=== PATIENT | male | born 1950 | race Caucasian/White ===

== ENCOUNTER 2020-09-16 04:53 | Emergency (ER) | payer MEDICARE, OTHER ==
[~2020-09-16] VITALS: Ht 177.8 cm; Wt 75.0 kg
--- NOTE | 2020-09-16 05:16 | PHYS DOC ---
Past History Past Medical History: Other Past Surgical History: Other Smoking: Cigarettes Alcohol Use: Rarely Drug Use: None General Adult EDM: Chief Complaint: SHORTNESS OF BREATH HPI: HPI: 70-year-old male with a history of COPD presents with shortness of breath. The patient took a home COVID-19 test 4 days ago and it was positive. She had symptoms for 2 days before that. He went to his primary care physician who placed him on azithromycin, breathing treatments, and prednisone. The patient comes in today because these do not seem to be working. He is feeling more short of breath. He has been hospitalized for COPD in the past. He does not report fever or chills. "It just feels like I cannot get a breath". Review of Systems: Review of Systems: Constitutional: Denies fever or chills Eyes: Denies change in visual acuity HENT: Denies nasal congestion or sore throat Respiratory: shortness of breath Cardiovascular: Denies chest pain or edema GI: Denies abdominal pain, nausea, vomiting, bloody stools or diarrhea : Denies dysuria Musculoskeletal: Denies back pain or joint pain Integument: Denies rash Neurologic: Denies headache, focal weakness or sensory changes Endocrine: Denies polyuria or polydipsia Lymphatic: Denies swollen glands Psychiatric: anxiety Current Medications: Current Meds: Current Medications Medications (Trade) Dose Ordered Sig/Lily Start Time Stop Time Status Last Admin Dose Admin Dexamethasone Sodium Phosphate (Decadron) 10 mg 1X ONCE 09/16/20 05:30 09/16/20 05:31 Allergies: Allergies: Allergies Coded Allergies Type Severity Reaction Last Updated Verified aspirin Allergy Severe Anaphylaxis 09/16/20 Yes Physical Exam: PE: Constitutional: Well developed, well nourished, mild acute distress. [] HENT: Normocephalic, atraumatic, bilateral external ears normal, oropharynx moist, no oral exudates, nose normal. [] Eyes: PERRLA, EOMI, conjunctiva normal, no discharge. [] Neck: Normal range of motion, no tenderness, supple, no stridor. [] Cardiovascular: Heart rate 105, regular rhythm, no murmur [] Lungs & Thorax: Bilateral breath sounds diminished [] Abdomen: Bowel sounds normal, soft, no tenderness, no masses, no pulsatile masses. [] Skin: Warm, dry, no erythema, no rash. [] Back: No tenderness, no CVA tenderness. [] Extremities: No tenderness, no cyanosis, no clubbing, ROM intact, no edema. [] Neurologic: Alert and oriented X 3, normal motor function, normal sensory function, no focal deficits noted. [] Psychologic: Affect normal, judgement normal, mood anxious. [] EKG: EKG: Sinus tachycardia, rate 102, normal axis, no ST elevation or depression. [] Radiology/Procedures: Radiology/Procedures: [] Impressions: EXAMINATION: Chest radiograph. VIEWS: Single view COMPARISON: None INDICATION:70 years, Male, cough and congestion. FINDINGS: Normal cardiomediastinal silhouette. Bibasilar subsegmental atelectasis versus infiltrates. No pleural effusion or pneumothorax. No acute osseous process. IMPRESSION: Bibasilar subsegmental atelectasis versus infiltrates. Clinical correlation is advised. Electronically signed by: Briana Alvarez MD (09/16/2020 5:29 AM) [facility] DICTATED AND SIGNED BY: BRIANA ALVAREZ MD DATE: 09/16/20527 CC: CARLIE MCMAHON DO; JOELLEN HURST MD ~MTH0 0 Heart Score: C/O Chest Pain: N/A Risk Factors: Risk Factors: DM, Current or recent (<one month) smoker, HTN, HLP, family history of CAD, obesity. Risk Scores: Score 0 - 3: 2.5% MACE over next 6 weeks - Discharge Home Score 4 - 6: 20.3% MACE over next 6 weeks - Admit for Clinical Observation Score 7 - 10: 72.7% MACE over next 6 weeks - Early Invasive Strategies Course & Med Decision Making: Course & Med Decision Making Pertinent Labs and Imaging studies reviewed. (See chart for details) The patient is only saturating at 90 to 91% on room air at rest but has an increased respiratory rate. I will treat him with albuterol and Decadron. He is already been taking breathing treatments, prednisone, and azithromycin. It appears as though the patient will need supplemental oxygen so I will admit him to the hospital. He has never been on oxygen at home. I spoke with Dr. Hurst and he has accepted the patient for admission. [] Ubaldo Disclaimer: [place] Disclaimer: This electronic medical record was generated, in whole or in part, using a voice recognition dictation system. Departure Departure: Impression: Primary Impression: COVID-19 Disposition: ADMITTED INPATIENT Admitting Physician: Joellen Hurst Condition: STABLE Referrals: JOELLEN HURST MD (PCP) CARLIE MCMAHON DO Sep 16, 2020 05:16
[2020-09-16] MEDS ORDERED: IPRATRPIUM/ALBUTEROL 0.5/2.5MG 3 ML NEBU. ONE (05:19)
[2020-09-16] MEDS ORDERED: IPRATRPIUM/ALBUTEROL 0.5/2.5MG 3 ML NEBU. NEB ONE ×2 (05:30→09:15)
[2020-09-16] MEDS ORDERED: DEXAMETHASONE SOD PHOS 10 MG/ML VIAL. IVP ONE (05:30)
--- NOTE | 2020-09-16 05:31 | RAD ---
EXAMINATION: Chest radiograph. VIEWS: Single view COMPARISON: None INDICATION:70 years, Male, cough and congestion. FINDINGS: Normal cardiomediastinal silhouette. Bibasilar subsegmental atelectasis versus infiltrates. No pleura l effusion or pneumothorax. No acute osseous process. IMPRESSION: Bibasilar subsegmental atelectasis versus infiltrates. Clinical correlation is advised. Electronically signed by: Rossana Alvarez MD (09/16/2020 5:29 AM) [facility]
[2020-09-16] MEDS ORDERED: ALBUTEROL SULFATE 8GM INHALER. ONE (05:32)
[2020-09-16 05:43] LABS: BASO % 0 % (0-3); EOS % 0 % (0-3); HEMATOCRIT 44.3 % (39.0-53.0); HEMOGLOBIN 14.6 g/dL (13.0-17.5); LYMPH # 0.3 x10^3/uL (1.0-4.8); LYMPH % 6 % (24-48); MEAN CORPUSCULAR HEMOGLOBIN 31 pg (25-35); MEAN CORPUSCULAR HGB CONC 33 g/dL (31-37); MEAN CORPUSCULAR VOLUME 94 fL (79-100); MONO # 0.4 x10^3/uL (0.0-1.1); MONO % 6 % (0-9); NEUT # 5.1 x10^3uL (1.8-7.7); NEUT % 88 % (31-73); PLATELET COUNT 137 x10^3/uL (140-400); RED BLOOD COUNT 4.73 x10^6/uL (4.30-5.70); RED CELL DISTRIBUTION WIDTH 14.2 % (11.5-14.5); WHITE BLOOD COUNT 5.8 x10^3/uL (4.0-11.0)
[2020-09-16 05:53] LABS: CALCIUM 8.5 mg/dL (8.5-10.1); CREATININE 1.1 mg/dL (0.7-1.3); GFR 66.6; POTASSIUM 3.9 mmol/L (3.5-5.1)
[2020-09-16 05:58] LABS: ALBUMIN 3.5 g/dL (3.4-5.0); TOTAL BILIRUBIN 0.3 mg/dL (0.2-1.0); TOTAL PROTEIN 7.1 g/dL (6.4-8.2)
--- NOTE | 2020-09-16 06:07 | EKG ---
[address] [address] Test Date: 2020-09-16 Test Time: 05:17:38 Pat Name: PATRICIA LUA Department: Room: Gender: M Computer Systems Designer: : 1950 Requested By: CARLIE MCMAHON Order Number: [id number] Reading MD: Measurements Intervals Ryan Rate: 102 P: 54 ME: 132 QRS: 39 QRSD: 80 T: 58 QT: 310 QTc: 408 Interpretive Statements SINUS TACHYCARDIA NO SPECIFIC ECG ABNORMALITIES RI6.02 No previous ECG available for comparison
[2020-09-16] MEDS ORDERED: MORPHINE SULFATE 4 MG/ML DISP.SYRIN. IVP PRN (07:15)
[2020-09-16] MEDS ORDERED: ONDANSETRON PF 4 MG/2 ML VIAL. IVP PRN (07:15)
[2020-09-16] MEDS ORDERED: AZITHROMYCIN 250 MG TABLET. PO ONE (09:15)
[2020-09-16] MEDS ORDERED: IPRATROPIUM/ALBUTEROL 20/100mcg/INH INHALER. INH SCH (12:00)
[2020-09-16] MEDS ORDERED: IPRATRPIUM/ALBUTEROL 0.5/2.5MG 3 ML NEBU. NEB SCH (12:00)
[2020-09-16] MEDS ORDERED: ENOXAPARIN 40 MG/0.4 ML SYRINGE. SQ SCH (12:00)
[2020-09-16] MEDS ORDERED: DEXAMETHASONE 4 MG TABLET PO SCH (14:00)
[2020-09-16 15:13] VITALS: BP 122/67
[2020-09-17] MEDS ORDERED: AZITHROMYCIN 250 MG TABLET. PO SCH (09:00)
== END 2020-09-16 17:30 | disposition admitted as inpatient to this hospital (09) ==
LOC: ER 04:53
DX: U07.1 COVID-19 (principal); F17.210 Nicotine dependence, cigarettes, uncomplicated; Z88.6 Allergy status to analgesic agent
CPT/HCPCS: 36415; 71045; 80053; 84484; 85025; 93005; 94640; 96372; 96374; 96375; 99285; C9803; J1100; J1650; J2270; U0003; 94664